=== PATIENT | female | born 1970 | race Caucasian/White ===

== ENCOUNTER → 2017-02-06 | Outpatient (CLI) | payer MEDICARE, OTHER ==
--- NOTE | 2017-02-08 22:21 | MR ---
MRI CERVICAL SPINE: CLINICAL HISTORY: Cervicalgia per order. Headache with neck pain causing pain or weakness in both arm s and fingers and since shoulders per patient. TECHNIQUE: Multiplanar, multisequence imaging of the cervical spine is performed without IV contrast. . COMPARISON: Outside MRI cervical spine report June 30, 2014. FINDINGS: Exam is suboptimal as is degraded by patient motion artifact. Sagittal images of the cervic al spine show the craniocervical junction to appear within normal limits. The cervical and upper tho racic spinal cord is normal in caliber and signal. There is dextroconvex scoliosis centered near the cervical thoracic junction on coronal images. There is reversal of normal cervical curvature on sagit marcelina images. There is grade 1 retrolisthesis of C4 on C5, C5 on C6, and C6 on C7 on sagittal images. V ertebral body and heights are normal. There is moderate disc space narrowing C4-C5 through C6-C7 leve ls. There is overall heterogeneity with endplate changes in the mid to lower cervical spine. Mild ant erior spurring mid to lower cervical levels is present. Axial images show the C2-C3 level to appear within normal limits. Axial images at C3-C4 level show broad-based posterior disc protrusion effacing anterior thecal sac a nd causing mild bilateral neural foraminal narrowing. Axial images at C4-C5 level show more prominent broad-based right paracentral/foraminal disc protrusi on effacing anterior thecal sac and causing moderate right greater than left neural foraminal narrowi ng. Axial images at C5-C6 level show broad-based left paracentral disc protrusion effacing anterior theca l sac and causing moderate to severe left and mild right-sided neural foraminal narrowing. Axial images at C6-C7 level show prominent left paracentral/foraminal disc protrusion effacing annamarie lateral thecal sac and causing advanced left-sided neural foraminal narrowing on axial image 15. Righ t-sided neural foramen is patent. Axial images at C7-T1 level are felt within normal limits. IMPRESSION: Loss of normal cervical curvature with multilevel degenerative changes redemonstrated, mo st pronounced neural foraminal narrowing is redemonstrated at left C5-C6 and C6-C7 levels similar to what is described on prior outside report.
== END | disposition home or self-care (01) ==
LOC: RADMRIMAIN 07:06
PROVIDERS: ATTEND Psychiatry & Neurology Neurology
DX: M99.71 Connective tissue and disc stenosis of intervertebral foramina of cervical region (principal); M47.812 Spondylosis without myelopathy or radiculopathy, cervical region; M43.8X2 Other specified deforming dorsopathies, cervical region
CPT/HCPCS: 72141

== ENCOUNTER 2017-04-28 22:06 | Emergency (ER) | payer MEDICARE, OTHER ==
[2017-04-28 22:11] VITALS: RESP 18; TEMP 97.9
[2017-04-28] MEDS ORDERED: SODIUM CHLORIDE 0.9% 1,000 ML IV STA (22:19)
[2017-04-28] MEDS ORDERED: HYDROmorphone 1 MG/ML 1 ML SYRINGE IVP STA (22:19)
[2017-04-28] MEDS ORDERED: METOCLOPRAMIDE 5 MG/ML 2 ML VIAL IVP STA (22:19)
[2017-04-28] MEDS ORDERED: RX INFO: IV CONTRAST WAS GIVEN 1 EACH MISC MISCELLANE PRN (22:20)
--- NOTE | 2017-04-28 22:26 | ED ---
Abdominal Pain HPI - General Chief Complaint: Abdominal Pain Stated Complaint: fever N & V Time Seen by Provider: 04/28/17 22:16 Source: patient, RN notes reviewed Mode of arrival: ambulatory Limitations: no limitations - History of Present Illness Initial Comments: 46 yo female presents to the ER with cc of right sided abdominal pain. Patient states that this pain started on Monday associated with fever. Patient states that then 2 days later she developed nausea and vomiting. Patient states she is now having ripping pain to the right lower quadrant. Patient states she was concerned due to her symptoms so she thought she should be seen. no radiation, constant pain, moderate in nature. surgical history of hysterectomy and tubal ligation. Patient denies any recent shortness of breath, chest pain, back pain, numbness or tingling, dysuria or hematuria, constipation or diarrhea, headaches or visual changes, or any other current symptoms. - Related Data Home Medications Medication Instructions Recorded Confirmed Albuterol Inhaler [Ventolin 2 puff INHALATION Q6HR PRN 07/22/14 04/28/17 Inhaler] Cyclobenzaprine [Flexeril] 10 mg PO HS 07/22/14 04/28/17 Nitroglycerin Sl Tabs [Nitrostat] 1 mg SUBLINGUAL DIRECTED PRN 07/22/1404/28 Omeprazole [PriLOSEC] 20 mg PO AC-BRKFST 07/22/14 04/28/17 traMADol HCl [Ultram] 50 mg PO TID PRN 07/22/14 04/28/17 ARIPiprazole 10 mg PO DAILY 04/28/17 04/28/17 Citalopram Hydrobromide 20 mg PO DAILY 04/28/17 04/28/17 [Citalopram HBr] Ergocalciferol [Vitamin D2] 50,000 unit PO Q7D 04/28/17 04/28/17 Gabapentin [Neurontin] 600 mg PO TID 04/28/17 04/28/17 Glycopyrrolate/Formoterol Fum 1 puff INHALATION RT-BID 04/28/17 04/28/17 [Bevespi Aerosphere Inhaler] Ibuprofen [Motrin] 600 mg PO TID PRN 04/28/17 04/28/17 Montelukast Sodium [Singulair] 10 mg PO DAILY 04/28/17 04/28/17 Phentermine HCl [Adipex-P] 37.5 mg PO DAILY 04/28/17 04/28/17 Pravastatin Sodium [Pravachol] 20 mg PO HS 04/28/17 04/28/17 Topiramate [Topamax] 50 mg PO BID 04/28/17 04/28/17 cloNIDine HCL [Catapres] 0.3 mg PO BID 04/28/17 04/28/17 Previous Rx's Medication Instructions Recorded Hydrocodone/Acetaminophen [Bristol 1 each PO Q6HR PRN #20 tab 04/29/17 5-325] Ondansetron Odt [Zofran ODT] 4 mg PO Q8HR PRN #20 tab 04/29/17 Allergies Allergy/AdvReac Type Severity Reaction Status Date / Time Tetracyclines AdvReac Nausea & Verified 04/28/17 22:35 Vomiting Review of Systems ROS Statement: Those systems with pertinent positive or pertinent negative responses have been documented in the HPI. ROS Other: All systems not noted in ROS Statement are negative. Past Medical History Past Medical History: Chest Pain / Angina, COPD, Fibromyalgia, GERD/Reflux, Hypertension, Neurologic Disorder Additional Past Medical History / Comment(s): Lupus,cervical disc degeneration History of Any Multi-Drug Resistant Organisms: None Reported Past Surgical History: Bladder Surgery, Hernia Repair, Hysterectomy Additional Past Surgical History / Comment(s): colonoscopy,EGD Past Anesthesia/Blood Transfusion Reactions: No Reported Reaction Past Psychological History: Bipolar, Depression Smoking Status: Current every day smoker Past Alcohol Use History: Occasional Past Drug Use History: None Reported - Past Family History Mother Family Medical History: Deep Vein Thrombosis (DVT) General Exam - General Exam Comments Initial Comments: General: The patient is awake and alert, in no distress, and does not appear acutely ill. Eye: Pupils are equal, round and reactive to light, extra-ocular movements are intact; there is normal conjunctiva bilaterally. No signs of icterus. Ears, nose, mouth and throat: There are moist mucous membranes and no oral lesions. Neck: The neck is supple, there is no tenderness. Cardiovascular: There is a regular rate and rhythm. No murmur, rub or gallop is appreciated. Respiratory: Lungs are clear to auscultation, respirations are non-labored, breath sounds are equal. No wheezes, stridor, rales, or rhonchi. Gastrointestinal: Soft, non-distended, right lower quadrant tenderness of the abdomen without masses or organomegaly noted. There is no rebound or guarding present. No CVA tenderness. Bowel sounds are unremarkable. Back: There is no tenderness to palpation in the midline. There is no obvious deformity. No rashes noted. Musculoskeletal: Normal ROM, no tenderness, There is no pedal edema. There is no calf tenderness or swelling. Sensation intact. Pulses equal bilaterally 2+. Neurological: CN II-XII intact, There are no obvious motor or sensory deficits. Coordination appears grossly intact. Speech is normal. Skin: Skin is warm and dry and no rashes or lesions are noted. Psychiatric: Cooperative, appropriate mood & affect, normal judgment. Limitations: no limitations Course Vital Signs 04/28/17 04/29/17 04/29/17 22:09 01:02 02:37 Temperature 97.9 F 97.9 F 97.9 F Pulse Rate 104 H 100 97 Respiratory 18 18 18 Rate Blood Pressure 175/113 158/92 151/100 O2 Sat by Pulse 99 99 99 Oximetry Medical Decision Making - Medical Decision Making 46 yo female presents to the ER with cc of right lower quadrant abdominal pain. At this time patient's lab work is initial mild case of acute pancreatitis mildly elevated liver enzymes as well. At this time we did discuss patient obtained hospital or go home. She states that she is feeling better. At this time we will discharge patient home. We discussed only clear liquids and talus her abdominal pain has completely resolved. We discussed follow-up with her doctor for resolution of the labs we discussed return parameters all patient's questions. She stated that she understood and she is ovarian plan. All questions have been answered. Since she will be discharged. - Lab Data Result diagrams: 04/28/17 22:40 04/28/17 22:40 Lab Results 04/28/17 04/28/17 04/28/17 Range/Units 22:40 22:40 22:40 WBC 7.4 (3.8-10.6) k/uL RBC 6.06 H (3.80-5.40) m/uL Hgb 18.6 H (11.4-16.0) gm/dL Hct 54.7 H (34.0-46.0) % MCV 90.3 (80.0-100.0) fL MCH 30.7 (25.0-35.0) pg MCHC 34.0 (31.0-37.0) g/dL RDW 13.4 (11.5-15.5) % Plt Count 208 (150-450) k/uL Neutrophils % 48 % Lymphocytes % 44 % Monocytes % 4 % Eosinophils % 1 % Basophils % 2 % Neutrophils # 3.5 (1.3-7.7) k/uL Lymphocytes # 3.3 (1.0-4.8) k/uL Monocytes # 0.3 (0-1.0) k/uL Eosinophils # 0.1 (0-0.7) k/uL Basophils # 0.1 (0-0.2) k/uL PT (9.0-12.0) sec INR (<1.1) APTT (22.0-30.0) sec Sodium 141 (137-145) mmol/L Potassium 3.1 L (3.5-5.1) mmol/L Chloride 98 (98-107) mmol/L Carbon Dioxide 24 (22-30) mmol/L Anion Gap 19 mmol/L BUN 9 (7-17) mg/dL Creatinine 0.80 (0.52-1.04) mg/dL Est GFR (MDRD) Af Amer >60 (>60 ml/min/1.73 sqM) Est GFR (MDRD) Non-Af >60 (>60 ml/min/1.73 sqM) Glucose 92 (74-99) mg/dL Plasma Lactic Acid Kang (0.7-2.0) mmol/L Calcium 10.6 H (8.4-10.2) mg/dL Total Bilirubin 0.9 (0.2-1.3) mg/dL AST 84 H (14-36) U/L ALT 71 H (9-52) U/L Alkaline Phosphatase 106 (38-126) U/L Total Protein 8.8 H (6.3-8.2) g/dL Albumin 5.2 H (3.5-5.0) g/dL Amylase 133 H (30-110) U/L Lipase 384 H (23-300) U/L Urine Color Urine Appearance (Clear) Urine pH (5.0-8.0) Ur Specific Peck (1.001-1.035) Urine Protein (Negative) Urine Glucose (UA) (Negative) Urine Ketones (Negative) Urine Blood (Negative) Urine Nitrite (Negative) Urine Bilirubin (Negative) Urine Urobilinogen (<2.0) mg/dL Ur Leukocyte Esterase (Negative) Blood Type O Positive Blood Type Recheck No Antibody Screen NEGATIVE Spec Expiration Date 05/01/2017 - 233904/28/17 04/28/17 04/29/17 Range/Units 22:40 22:40 00:20 WBC (3.8-10.6) k/uL RBC (3.80-5.40) m/uL Hgb (11.4-16.0) gm/dL Hct (34.0-46.0) % MCV (80.0-100.0) fL MCH (25.0-35.0) pg MCHC (31.0-37.0) g/dL RDW (11.5-15.5) % Plt Count (150-450) k/uL Neutrophils % % Lymphocytes % % Monocytes % % Eosinophils % % Basophils % % Neutrophils # (1.3-7.7) k/uL Lymphocytes # (1.0-4.8) k/uL Monocytes # (0-1.0) k/uL Eosinophils # (0-0.7) k/uL Basophils # (0-0.2) k/uL PT 10.2 (9.0-12.0) sec INR 1.0 (<1.1) APTT 23.7 (22.0-30.0) sec Sodium (137-145) mmol/L Potassium (3.5-5.1) mmol/L Chloride (98-107) mmol/L Carbon Dioxide (22-30) mmol/L Anion Gap mmol/L BUN (7-17) mg/dL Creatinine (0.52-1.04) mg/dL Est GFR (MDRD) Af Amer (>60 ml/min/1.73 sqM) Est GFR (MDRD) Non-Af (>60 ml/min/1.73 sqM) Glucose (74-99) mg/dL Plasma Lactic Acid Kang 1.5 (0.7-2.0) mmol/L Calcium (8.4-10.2) mg/dL Total Bilirubin (0.2-1.3) mg/dL AST (14-36) U/L ALT (9-52) U/L Alkaline Phosphatase (38-126) U/L Total Protein (6.3-8.2) g/dL Albumin (3.5-5.0) g/dL Amylase (30-110) U/L Lipase (23-300) U/L Urine Color Yellow Urine Appearance Clear (Clear) Urine pH 5.5 (5.0-8.0) Ur Specific Peck 1.040 H (1.001-1.035) Urine Protein Negative (Negative) Urine Glucose (UA) Negative (Negative) Urine Ketones 1+ H (Negative) Urine Blood Negative (Negative) Urine Nitrite Negative (Negative) Urine Bilirubin Negative (Negative) Urine Urobilinogen <2.0 (<2.0) mg/dL Ur Leukocyte Esterase Negative (Negative) Blood Type Blood Type Recheck Antibody Screen Spec Expiration Date - Radiology Data Radiology results: report reviewed, image reviewed Disposition Clinical Impression: Dehydration, Acute pancreatitis, Elevated liver enzymes Disposition: HOME SELF-CARE Condition: Stable Instructions: Pancreatitis (ED) Additional Instructions: Please use medication as discussed. Please follow up with family doctor if symptoms have not improved over the next two days. Please return to the emergency room if your symptoms increase or worsen or for any other concerns. Prescriptions: Hydrocodone/Acetaminophen [Bristol 5-325] 1 each PO Q6HR PRN #20 tab PRN Reason: Pain Ondansetron Odt [Zofran ODT] 4 mg PO Q8HR PRN #20 tab PRN Reason: Nausea Referrals: Zain Hernandez MD [Primary Care Provider] - 1-2 days Time of Disposition: 17:30
[2017-04-28 22:59] LABS: Basophils # (A) 0.1 k/uL (0-0.2); Basophils % (A) 2 %; CH 31.2; CHCM 34.7; Eosinophils # (A) 0.1 k/uL (0-0.7); Eosinophils % (A) 1 %; HCT 54.7 % (34.0-46.0); HDW 2.71; HGB 18.6 gm/dL (11.4-16.0); Luc # (Auto) 0.12; Luc % (Auto) 2; Lymphocytes # (A) 3.3 k/uL (1.0-4.8); Lymphocytes % (A) 44 %; MCH 30.7 pg (25.0-35.0); MCV 90.3 fL (80.0-100.0); Mean Platelet Volume 7.3; Monocytes # (A) 0.3 k/uL (0-1.0); Monocytes % (A) 4 %; Neutrophils # (A) 3.5 k/uL (1.3-7.7); Neutrophils % (A) 48 %; RBC 6.06 m/uL (3.80-5.40); RDW 13.4 % (11.5-15.5); WBC 7.4 k/uL (3.8-10.6); WBC (Perox) 7.02
[2017-04-28 23:16] LABS: ALT 71 U/L (9-52); AST 84 U/L (14-36); Alkaline Phosphatase 106 U/L (38-126); Amylase 133 U/L (30-110); Anion Gap 19 mmol/L; Blood Urea Nitrogen 9 mg/dL (7-17); Calcium 10.6 mg/dL (8.4-10.2); Carbon Dioxide 24 mmol/L (22-30); Chloride 98 mmol/L (98-107); Glucose 92 mg/dL (74-99); Non-African American GFR(MDRD) >60 (>60 ml/min/1.73 sqM); Potassium 3.1 mmol/L (3.5-5.1); Sodium 141 mmol/L (137-145); Total Bilirubin 0.9 mg/dL (0.2-1.3); Total Protein 8.8 g/dL (6.3-8.2)
[2017-04-28 23:19] LABS: Partial Thromboplastin Time 23.7 sec (22.0-30.0); Prothrombin Time 10.2 sec (9.0-12.0)
--- NOTE | 2017-04-28 23:21 | CT ---
EXAM: CT Abdomen and Pelvis With Intravenous Contrast CLINICAL HISTORY: Nausea, vomiting, diarrhea, right lower quadrant abdominal pain TECHNIQUE: Axial computed tomography images of the abdomen and pelvis with intravenous contrast. CTDI is 10.60, 11.30 mGy and DLP is 847.2 mGy-cm. This CT exam was performed using one or more of the following dose reduction techniques: automated exposure control, adjustment of the mA and/or kV according to patient size, and/or use of iterative reconstruction technique. COMPARISON: No relevant prior studies available. FINDINGS: Lower thorax: No acute findings. ABDOMEN: Liver: Unremarkable. Gallbladder and bile ducts: Unremarkable. No calcified stones. Pancreas: Unremarkable. Spleen: Unremarkable. Adrenals: Unremarkable. Kidneys and ureters: Unremarkable. No solid mass. No hydronephrosis. Stomach and bowel: Unremarkable. Bowel is nondilated. Appendix: No findings to suggest acute appendicitis. PELVIS: Bladder: Unremarkable. Reproductive: Unremarkable as visualized. ABDOMEN and PELVIS: Intraperitoneal space: Unremarkable. No free air. Bones/joints: No acute osseous abnormality. Soft tissues: Small fat-containing periumbilical and inguinal hernias. Vasculature: Mild atherosclerosis of the abdominal aorta without evidence of aneurysm. Lymph nodes: Unremarkable. No enlarged lymph nodes. IMPRESSION: No acute findings.
[2017-04-28] MEDS ORDERED: POTASSIUM CHLORIDE ORAL LIQUID 40 MEQ/30 ML CUP PO ONE (23:35)
[2017-04-29] MEDS: POTASSIUM CHLORIDE 10 MEQ, LIDOCAINE 2% INJ 10 MG in SODIUM CHLORIDE 0.9% 100 ML IVPB SCH ×2 (00:06→01:25)
--- NOTE | 2017-04-29 00:20 | US ---
EXAM: US Abdomen Limited, Right Upper Quadrant CLINICAL HISTORY: Reason: Pain TECHNIQUE: Real-time ultrasound of the right upper quadrant with image documentation. COMPARISON: CT 04/28/2017 FINDINGS: Limitations: Bowel gas Liver: The liver is normal in size and smooth in contour measuring 13. 8 cm in length focal hepatic lesions. The portal vein is patent with normal direction of flow. Gallbladder: Sonographic Goncalves sign is negative. No gallstones. Common bile duct: Unremarkable as visualized. No stones. No dilation. Pancreas: Not well-seen. Right kidney: The right kidney is normal in size, contour, and echogenicity and measures 11.3 cm in length. No hydronephrosis, nephrolithiasis, or focal renal lesions. IMPRESSION: Unremarkable gallbladder ultrasound.
[2017-04-29] MEDS ORDERED: SODIUM CHLORIDE 0.9% 1,000 ML IV STA (00:47)
[2017-04-29] MEDS ORDERED: HYDROmorphone 1 MG/ML 1 ML SYRINGE IVP STA (00:47)
[2017-04-29 01:20] LABS: Appearance,Urine Clear (Clear); Bilirubin,Urine Negative (Negative); Glucose,Urine (UA) Negative (Negative); Ketones,Urine 1+ (Negative); Leukocyte Esterase,Urine Negative (Negative); Nitrite,Urine Negative (Negative); PH, Urine 5.5 (5.0-8.0); Protein,Urine Negative (Negative); UA Billing (MACRO vs. MICRO) CHEM; Urobilinogen,Urine <2.0 mg/dL (<2.0)
[2017-04-29 02:38] VITALS: BP 151/100; PULSE 97
== END 2017-04-29 02:37 | disposition home or self-care (01) ==
LOC: EC 22:06
DX: E86.0 Dehydration (principal); K85.90 Acute pancreatitis without necrosis or infection, unspecified; R74.8 Abnormal levels of other serum enzymes; K21.9 Gastro-esophageal reflux disease without esophagitis; M79.7 Fibromyalgia; I10 Essential (primary) hypertension; J44.9 Chronic obstructive pulmonary disease, unspecified; F31.9 Bipolar disorder, unspecified; F17.200 Nicotine dependence, unspecified, uncomplicated; Z79.51 Long term (current) use of inhaled steroids; Z79.899 Other long term (current) drug therapy; Z88.1 Allergy status to other antibiotic agents; Z90.710 Acquired absence of both cervix and uterus; Z98.890 Other specified postprocedural states
CPT/HCPCS: 36415; 86900; 86901; 80053; 82150; 83605; 83690; 85025; 85610; 85730; 86850; 81003; 87040; 87086; 76705; 74177; 99284; 96365; 96366 ×2; 96375 ×2; 96376; 96361; J2001; J2765; J3480; J1170 ×2; Q9967

== ENCOUNTER → 2019-05-28 | Outpatient (CLI) | payer MEDICARE ==
--- NOTE | 2019-05-29 11:14 | MM ---
Reason for exam: screening (asymptomatic). Last mammogram was performed 3 years and 2 months ago. History: Patient is postmenopausal. Family history of breast cancer in paternal aunt at age 30. Took hormonal contraceptives for 5 years. Physical Findings: A clinical breast exam by your physician is recommended on an annual basis and results should be correlated with mammographic findings. MG 3D Screening Mammo W/Cad Bilateral CC and MLO view(s) were taken. Prior study comparison: April 08, 2016, bilateral MG 3d screening mammo w/cad. January 13, 2015, bilateral MG diagnostic mammo w CAD [facility]. There are scattered fibroglandular densities. Stable benign calcifications. There is no discrete abnormality. No significant changes when compared with prior studies. ASSESSMENT: Benign, BI-RAD 2 RECOMMENDATION: Routine screening mammogram of both breasts in 1 year.
== END | disposition home or self-care (01) ==
LOC: RADMAMWWP 07:52
PROVIDERS: ATTEND Family Medicine
DX: Z12.31 Encounter for screening mammogram for malignant neoplasm of breast (principal)
CPT/HCPCS: 77063; 77067

== ENCOUNTER → 2019-06-24 | Outpatient (CLI) | payer MEDICARE ==
[2019-06-24 10:25] LABS: Basophils # (A) 0.1 k/uL (0-0.2); Basophils % (A) 1 %; Eosinophils # (A) 0.2 k/uL (0-0.7); Eosinophils % (A) 2 %; HCT 50.5 % (34.0-46.0); HGB 16.2 gm/dL (11.4-16.0); Lymphocytes # (A) 2.4 k/uL (1.0-4.8); Lymphocytes % (A) 29 %; MCH 31.1 pg (25.0-35.0); MCHC 32.1 g/dL (31.0-37.0); MCV 96.7 fL (80.0-100.0); Mean Platelet Volume 6.8; Monocytes # (A) 0.4 k/uL (0-1.0); Monocytes % (A) 5 %; Neutrophils # (A) 5.3 k/uL (1.3-7.7); Neutrophils % (A) 63 %; Platelet Count 222 k/uL (150-450); RBC 5.22 m/uL (3.80-5.40); RDW 12.7 % (11.5-15.5); WBC 8.4 k/uL (3.8-10.6)
[2019-06-24 16:12] LABS: ALT 37 U/L (8-44); AST 41 U/L (13-35); African American GFR (CKD) 100.3 (60.0-200.0); Albumin/Globulin Ratio 2.05 (1.60-3.17); Alkaline Phosphatase 96 U/L (41-126); Bilirubin, Conjugated <0.20 mg/dL (0.20-0.40); Calcium 9.1 mg/dL (8.7-10.3); Carbon Dioxide 30.9 mmol/L (21.6-31.8); Chloride 103 mmol/L (96-109); Chol/HDL Ratio 3.28; Cholesterol 174 mg/dL (0-200); Globulin 2.1 g/dL (1.6-3.3); Glucose 115 mg/dL (70-110); Non-African American GFR(CKD) 86.6 (60.0-200.0); Potassium 5.4 mmol/L (3.5-5.5); Sodium 139 mmol/L (135-145); Total Bilirubin 0.3 mg/dL (0.2-1.2); Total Protein 6.4 g/dL (6.2-8.2)
[2019-06-24 16:20] LABS: Prolactin 19.7 ng/mL (2.8-29.2)
[2019-06-24 17:16] LABS: Hemoglobin A1C 5.9 % (4.0-6.0)
== END ==
LOC: LABWHC1 09:25
PROVIDERS: ATTEND Clinical Nurse Specialist Psychiatric/Mental Health
DX: F41.1 Generalized anxiety disorder (principal)
CPT/HCPCS: 36415; 80053; 80061; 82248; 83036; 84146; 84439; 84443; 84479; 85025

== ENCOUNTER → 2021-05-25 | Outpatient (CLI) | payer MEDICARE | END | disposition home or self-care (01) | LOC: LABWHC1 08:55 | PROVIDERS: ATTEND Physician Assistant | DX: I49.9 Cardiac arrhythmia, unspecified (principal) | CPT/HCPCS: 36415; 93005 ==

== ENCOUNTER → 2021-10-26 | Outpatient (CLI) | payer MEDICARE ==
[~2021-10-26] MED LIST: BAMLANIVIMAB (EUA) 700 MG, ETESEVIMAB (EUA) 1,400 MG in SODIUM CHLORIDE 0.9% 50 ML IVPB ONE; SODIUM CHLORIDE 0.9% 50 ML IVPB ONE; SODIUM CHLORIDE 0.9% 500 ML 500 ML in EMPTY BAG 1 BAG IV PRN
[2021-10-26 09:01] VITALS: RESP 16
[2021-10-26 09:34] VITALS: BP 118/80; PULSE 86; TEMP 97.4
== END | disposition home or self-care (01) ==
LOC: PROCWHC3 08:28
PROVIDERS: ATTEND Family Medicine
DX: U07.1 COVID-19 (principal)
CPT/HCPCS: 96360; J3490; M0245

== ENCOUNTER 2021-11-02 01:15 | Observation (INO) | payer MEDICARE ==
--- NOTE | 2021-11-02 02:03 | ED ---
Chest Pain HPI - General Chief Complaint: Chest Pain Stated Complaint: Chest Pain Time Seen by Provider: 11/02/21 01:40 Source: patient Mode of arrival: ambulatory Limitations: no limitations - History of Present Illness Initial Comments: This patient is a 50-year-old woman with history of COPD and recent Covid infection, who presents with complaint of right-sided chest pain. The patient states that it is at the inframammary line. He states that it feels sharp and is worse with taking a deep breath. She has not noted other worsening or relieving factors. She has not noted fever or chills, dyspnea, nausea, vomiting, palpitations or syncope. No leg pain or swelling. MD Complaint: chest pain Onset/Timin -: days(s) Onset: during rest Pain Location: right chest Pain Radiation: none Severity: moderate Quality: sharp Consistency: constant Improves With: nothing Worsens With: inspiration Context: recent illness Other Symptoms: cough Treatments Prior to Arrival: none - Related Data Home Medications Medication Instructions Recorded Confirmed Albuterol Inhaler (Mhu) [Ventolin 2 puff INHALATION Q6HR PRN 07/22/14 04/28/17 Inhaler] Cyclobenzaprine [Flexeril] 10 mg PO HS 07/22/14 04/28/17 Nitroglycerin Sl Tabs [Nitrostat] 1 mg SUBLINGUAL DIRECTED PRN 07/22/14 04/28/17 Omeprazole [PriLOSEC] 20 mg PO AC-BRKFST 07/22/14 04/28/17 traMADol HCl [Ultram] 50 mg PO TID PRN 07/22/14 04/28/17 ARIPiprazole 10 mg PO DAILY 04/28/17 04/28/17 Citalopram Hydrobromide 20 mg PO DAILY 04/28/17 04/28/17 [Citalopram HBr] Ergocalciferol [Vitamin D2] 50,000 unit PO Q7D 04/28/17 04/28/17 Gabapentin [Neurontin] 600 mg PO TID 04/28/17 04/28/17 Glycopyrrolate/Formoterol Fum 1 puff INHALATION RT-BID 04/28/17 04/28/17 [Bevespi Aerosphere Inhaler] Ibuprofen [Motrin] 600 mg PO TID PRN 04/28/17 04/28/17 Montelukast Sodium [Singulair] 10 mg PO DAILY 04/28/17 04/28/17 Phentermine HCl [Adipex-P] 37.5 mg PO DAILY 04/28/17 04/28/17 Pravastatin Sodium [Pravachol] 20 mg PO HS 04/28/17 04/28/17 Topiramate [Topamax] 50 mg PO BID 04/28/17 04/28/17 cloNIDine HCL [Catapres] 0.3 mg PO BID 04/28/17 04/28/17 Previous Rx's Medication Instructions Recorded Hydrocodone/Acetaminophen [Benicia 1 each PO Q6HR PRN #20 tab 04/29/17 5-325] Ondansetron Odt [Zofran ODT] 4 mg PO Q8HR PRN #20 tab 04/29/17 Allergies Allergy/AdvReac Type Severity Reaction Status Date / Time Tetracyclines AdvReac Nausea & Verified 11/02/21 01:20 Vomiting Review of Systems ROS Statement: Those systems with pertinent positive or pertinent negative responses have been documented in the HPI. ROS Other: All systems not noted in ROS Statement are negative. Constitutional: Denies: fever, chills Respiratory: Reports: as per HPI, cough. Denies: dyspnea, wheezes, hemoptysis Cardiovascular: Reports: as per HPI, chest pain. Denies: palpitations, orthopnea, edema, syncope Gastrointestinal: Denies: abdominal pain, nausea, vomiting, diarrhea Genitourinary: Denies: dysuria, hematuria Musculoskeletal: Denies: back pain Skin: Denies: rash Neurological: Denies: headache EKG Findings - EKG Results: EKG: interpreted by ERMD, sinus rhythm (Rate 83 bpm) - Blocks, [place], Hypertrophy, ST Abn: AV and intraventricular conduction: right bundle branch block (fixed/intermittent, complete/incomplete) (Incomplete) Repolarization changes or abnormalities: nonspecific abnormality, ST segment, and/or T wave, Q-T interval prolongation Past Medical History Past Medical History: Chest Pain / Angina, COPD, Fibromyalgia, GERD/Reflux, Hypertension, Neurologic Disorder Additional Past Medical History / Comment(s): Lupus,cervical disc degeneration History of Any Multi-Drug Resistant Organisms: None Reported Past Surgical History: Bladder Surgery, Hernia Repair, Hysterectomy Additional Past Surgical History / Comment(s): colonoscopy,EGD Past Anesthesia/Blood Transfusion Reactions: No Reported Reaction Past Psychological History: Bipolar, Depression Smoking Status: Current every day smoker Past Alcohol Use History: Occasional Past Drug Use History: Marijuana - Past Family History Mother Family Medical History: Deep Vein Thrombosis (DVT) General Exam Limitations: no limitations General appearance: alert, in no apparent distress Head exam: Present: atraumatic, normocephalic Eye exam: Present: normal appearance. Absent: scleral icterus, conjunctival injection ENT exam: Present: normal oropharynx Neck exam: Present: normal inspection Respiratory exam: Present: normal lung sounds bilaterally. Absent: respiratory distress, wheezes, rales, rhonchi, stridor, chest wall tenderness Cardiovascular Exam: Present: regular rate, normal rhythm, normal heart sounds. Absent: systolic murmur, diastolic murmur, rubs, gallop GI/Abdominal exam: Present: soft. Absent: distended, tenderness, guarding, rebound, rigid, mass Extremities exam: Present: normal inspection, normal capillary refill. Absent: pedal edema, calf tenderness Back exam: Present: normal inspection. Absent: CVA tenderness (R), CVA tenderness (L) Neurological exam: Present: alert Skin exam: Present: warm, dry, intact, normal color. Absent: rash Course Vital Signs 11/02/21 11/02/21 11/02/21 01:21 02:19 03:02 Temperature 98.2 F Pulse Rate 83 82 86 Respiratory 20 18 18 Rate Blood Pressure 128/89 106/92 118/84 O2 Sat by Pulse 99 97 97 Oximetry 11/02/21 06:00 Temperature 98.7 F Pulse Rate 78 Respiratory 18 Rate Blood Pressure 114/90 O2 Sat by Pulse 96 Oximetry Chest [facility] Patient is 50-year-old woman who presents with chest pain that is atypical with some new ST segment changes to the ECG. I do suspect that these are related to the patient's moderate hypokalemia. Patient has had potassium supplement, will admit to observation for serial cardiac enzymes and to ensure that these changes resolve. Disposition Clinical Impression: Atypical chest pain, Hypokalemia Disposition: ADMITTED IP TO THIS [facility] Condition: Good Is patient prescribed a controlled substance at d/c from ED?: No Referrals: Zain Hernandez MD [Primary Care Provider] - 1-2 days
[2021-11-02 02:34] LABS: Basophils # (A) 0.1 k/uL (0-0.2); Basophils % (A) 1 %; Eosinophils # (A) 0.1 k/uL (0-0.7); Eosinophils % (A) 1 %; HCT 52.7 % (34.0-46.0); HGB 17.8 gm/dL (11.4-16.0); Lymphocytes # (A) 1.8 k/uL (1.0-4.8); Lymphocytes % (A) 20 %; MCH 31.9 pg (25.0-35.0); MCHC 33.7 g/dL (31.0-37.0); MCV 94.7 fL (80.0-100.0); Mean Platelet Volume 7.6; Monocytes # (A) 0.3 k/uL (0-1.0); Monocytes % (A) 3 %; Neutrophils # (A) 6.7 k/uL (1.3-7.7); Neutrophils % (A) 72 %; Platelet Count 271 k/uL (150-450); RBC 5.56 m/uL (3.80-5.40); RDW 12.9 % (11.5-15.5); WBC 9.3 k/uL (3.8-10.6)
[2021-11-02] MEDS ORDERED: KETOROLAC 15 MG/ML 1 ML VIAL IVP STA (02:40)
[2021-11-02 02:45] LABS: INR 0.9 (<1.2); Partial Thromboplastin Time 22.1 sec (22.0-30.0); Prothrombin Time 9.8 sec (9.0-12.0)
[2021-11-02 02:54] LABS: ALT 14 U/L (4-34); AST 42 U/L (14-36); African American GFR (CKD) >90 (>60 ml/min/1.73 sqM); Albumin 4.1 g/dL (3.5-5.0); Alkaline Phosphatase 89 U/L (38-126); Amylase 88 U/L (30-110); Anion Gap 17 mmol/L; Blood Urea Nitrogen 9 mg/dL (7-17); Calcium 9.7 mg/dL (8.4-10.2); Carbon Dioxide 24 mmol/L (22-30); Chloride 94 mmol/L (98-107); Glucose 102 mg/dL (74-99); Lipase 167 U/L (23-300); Magnesium 1.7 mg/dL (1.6-2.3); Non-African American GFR(CKD) >90 (>60 ml/min/1.73 sqM); Potassium 2.9 mmol/L (3.5-5.1); Sodium 135 mmol/L (137-145); Total Bilirubin 0.5 mg/dL (0.2-1.3); Total Protein 7.9 g/dL (6.3-8.2)
[2021-11-02] MEDS ORDERED: POTASSIUM CHLORIDE ER 20 MEQ TAB.ER PO STA ×2 (03:05→04:50)
--- NOTE | 2021-11-02 03:09 | XR ---
EXAMINATION TYPE: XR chest 2V DATE OF EXAM: 11/02/2021 COMPARISON: 03/10/2017 HISTORY: Short of breath. Chest pain. There is no heart failure nor confluent pneumonic infiltrate. Costophrenic angles are clear. There i s mild pulmonary hyperinflation. Heart and mediastinum are normal. There is small linear density left lung base. IMPRESSION: There is probably some COPD. Normal heart. Minimal subsegmental atelectasis left lung bas e is new compared to old exam.
--- NOTE | 2021-11-02 03:32 | CT ---
EXAMINATION TYPE: CT chest angio for PE DATE OF EXAM: 11/02/2021 COMPARISON: None HISTORY: elevated d-dimer CT DLP: 258.8 mGycm Automated exposure control for dose reduction was used. CONTRAST: Performed with IV Contrast, patient injected with 60 mL of Isovue 370. Images obtained from the thoracic inlet to the diaphragm with IV contrast. There are 3-D post process ed images. The lungs are clear of consolidation. There is no evidence of a pulmonary mass. There is no pleural e ffusion. There are no hilar masses. There is no mediastinal adenopathy. Thoracic aorta is intact. There is no aneurysm or dissection. There is normal contrast opacification of the pulmonary arteries. There are no filling defects. Thora cic spine is intact. There is no compression fracture. Sternum is intact. There is no evidence of a r ib fracture. There is some mild flattening the diaphragm. IMPRESSION: No evidence of pulmonary embolism. There is evidence for some COPD. No acute lung disease.
[2021-11-02] MEDS ORDERED: NITROGLYCERIN SL TABS 0.4 MG TAB SUBLINGUAL PRN (06:32)
[2021-11-02] MEDS ORDERED: HEPARIN SODIUM,PORCINE/PF 5,000 UNIT/0.5 ML SYRINGE SQ SCH (08:00)
[2021-11-02 08:43] VITALS: RESP 16
[2021-11-02] MEDS ORDERED: CYCLOBENZAPRINE 10 MG TAB PO PRN (10:22)
[2021-11-02] MEDS ORDERED: IBUPROFEN 600 MG TAB PO PRN (10:22)
[2021-11-02] MEDS ORDERED: ALBUTEROL NEBULIZED 2.5 MG/3 ML INHALATION PRN (10:22)
[2021-11-02] MEDS ORDERED: traMADol 50 MG TAB PO PRN (10:22)
[2021-11-02] MEDS ORDERED: TOPIRAMATE 25 MG TAB PO PRN (10:22)
[2021-11-02] MEDS ORDERED: TOPIRAMATE 25 MG TAB PO SCH (10:30)
[2021-11-02] MEDS ORDERED: PRAVASTATIN SODIUM 40 MG TAB PO SCH (10:30)
[2021-11-02] MEDS ORDERED: risperiDONE 2 MG TAB PO SCH ×2 (10:30→21:00)
[2021-11-02] MEDS ORDERED: CITALOPRAM HYDROBROMIDE 20 MG TAB PO SCH ×2 (10:30→21:00)
[2021-11-02] MEDS ORDERED: MONTELUKAST 10 MG TAB PO SCH (10:30)
[2021-11-02] MEDS ORDERED: PANTOPRAZOLE 40 MG TABLET PO SCH (10:30)
[2021-11-02] MEDS ORDERED: cloNIDine HCL 0.1 MG TAB PO SCH (10:30)
[2021-11-02] MEDS ORDERED: GABAPENTIN 300 MG CAP PO SCH (10:30)
[2021-11-02] MEDS ORDERED: COLCHICINE 0.6 MG EACH PO SCH (10:30)
[2021-11-02 10:33] LABS: HCT 47.3 % (34.0-46.0); HGB 16.4 gm/dL (11.4-16.0); MCH 32.3 pg (25.0-35.0); MCHC 34.7 g/dL (31.0-37.0); MCV 92.8 fL (80.0-100.0); Mean Platelet Volume 7.7; Platelet Count 270 k/uL (150-450); RDW 12.4 % (11.5-15.5); WBC 5.9 k/uL (3.8-10.6)
[2021-11-02 10:58] LABS: African American GFR (CKD) >90 (>60 ml/min/1.73 sqM); Anion Gap 10 mmol/L; Blood Urea Nitrogen 7 mg/dL (7-17); Calcium 9.5 mg/dL (8.4-10.2); Carbon Dioxide 29 mmol/L (22-30); Chloride 95 mmol/L (98-107); Glucose 80 mg/dL (74-99); Non-African American GFR(CKD) >90 (>60 ml/min/1.73 sqM); Potassium 3.1 mmol/L (3.5-5.1); Sodium 134 mmol/L (137-145)
--- NOTE | 2021-11-02 12:58 | P.CRDCN ---
History of Present Illness Consult date: 11/02/21 Chief complaint: Chest pain History of present illness: The patient is a pleasant 50-year-old female patient with a past medical history significant for chronic obstructive pulmonary disease and also recent history of Chlamydia infection presented to the emergency department complaining of chest discomfort. The patient described the discomfort as one small spot beneath her right breast. The discomfort does not radiate to her arms or neck or shoulders or back and not associated with any symptoms of shortness of breath or sweating or dizziness or lightheadedness or any presyncope or syncope. She is asking to go home. She was ruled out for acute coronary event. The EKG showed sinus rhythm without any significant ST or T-wave abnormalities but nonspecific changes. The cardiac enzymes were checked and came in to be unremarkable. Be side that the patient underwent a computed tomography scan of the chest and that showed no evidence of pulmonary embolism. Currently she is chest pain-free. She has no prior history of coronary artery disease or congestive heart failure or cardiac arrhythmia but she does have history of smoking Past Medical History Past Medical History: Chest Pain / Angina, COPD, Fibromyalgia, GERD/Reflux, Hypertension, Neurologic Disorder Additional Past Medical History / Comment(s): Lupus,cervical disc degeneration History of Any Multi-Drug Resistant Organisms: None Reported Past Surgical History: Bladder Surgery, Hernia Repair, Hysterectomy Additional Past Surgical History / Comment(s): colonoscopy,EGD Past Anesthesia/Blood Transfusion Reactions: No Reported Reaction Past Psychological History: Bipolar, Depression Smoking Status: Current every day smoker Past Alcohol Use History: Occasional Past Drug Use History: Marijuana - Past Family History Mother Family Medical History: Deep Vein Thrombosis (DVT) Medications and Allergies Home Medications Medication Instructions Recorded Confirmed Type Cyclobenzaprine [Flexeril] 10 mg PO BID PRN 07/22/14 11/02/21 History Nitroglycerin Sl Tabs [Nitrostat] 0.4 mg SUBLINGUAL Q5M PRN 07/22/14 11/02/21 History Omeprazole [PriLOSEC] 20 mg PO DAILY 07/22/14 11/02/21 History traMADol HCl [Ultram] 50 mg PO QID PRN 07/22/14 11/02/21 History Gabapentin [Neurontin] 600 mg PO TID 04/28/17 11/02/21 History Ibuprofen [Motrin] 600 mg PO TID PRN 04/28/17 11/02/21 History Montelukast Sodium [Singulair] 10 mg PO DAILY 04/28/17 11/02/21 History cloNIDine HCL [Catapres] 0.3 mg PO TID 04/28/17 11/02/21 History Albuterol Sulfate [Albuterol 2 puff PO RT-Q4H PRN 11/02/21 11/02/21 History Sulfate Hfa] Aspirin EC [Ecotrin] 325 mg PO DAILY 11/02/21 11/02/21 History Budesonide-Formot 160-4.5 Mcg 2 puff INHALATION RT-BID 11/02/21 11/02/21 History [Symbicort 160-4.5 Mcg Inhaler] Cholecalciferol (Vitamin D3) 125 mcg PO BID 11/02/21 11/02/21 History [Vitamin D3 (125 MCG = 5,000 IU)] Citalopram Hydrobromide [CeleXA] 60 mg PO DAILY 11/02/21 11/02/21 History Colchicine 0.6 mg PO DAILY 11/02/21 11/02/21 History Ibuprofen [Motrin] 600 mg PO Q8HR PRN 11/02/21 11/02/21 History Melatonin 10 mg PO HS 11/02/21 11/02/21 History Nystatin 100,000Unit/gm Cream 1 applic TOPICAL BID 11/02/21 11/02/21 History [Mycostatin Cream] Pravastatin Sodium [Pravachol] 40 mg PO DAILY 11/02/21 11/02/21 History Topiramate 50 mg PO BID PRN 11/02/21 11/02/21 History Topiramate [Topamax] 50 mg PO DAILY 11/02/21 11/02/21 History Triamcinolone 0.1% Cream [Kenalog 1 applic TOPICAL BID 11/02/21 11/02/21 History 0.1% Cream] Turmeric Curcumin 1 tab PO BID 11/02/21 11/02/21 History Zinc Gluconate [Zinc] 50 mg PO BID 11/02/21 11/02/21 History risperiDONE [RisperDAL] 2 mg PO DAILY 11/02/21 11/02/21 History Allergies Allergy/AdvReac Type Severity Reaction Status Date / Time Tetracyclines AdvReac Nausea & Verified 11/02/21 07:09 Vomiting Physical Exam Vitals: Vital Signs Temp Pulse Resp BP Pulse Ox 11/02/21 08:38 81 16 140/99 95 11/02/21 07:00 98.0 F 82 18 112/86 96 11/02/21 06:00 98.7 F 78 18 114/90 96 11/02/21 04:30 82 18 116/79 95 11/02/21 03:02 86 18 118/84 97 11/02/21 02:19 82 18 106/92 97 11/02/21 01:21 98.2 F 83 20 128/89 99 Intake and Output 11/01/21 11/02/21 11/02/21 22:59 06:59 14:59 Other: Weight 63.503 kg - Constitutional General appearance: no acute distress - Respiratory Respiratory: bilateral: CTA - Cardiovascular Rhythm: regular Heart sounds: normal: S1, S2 Abnormal Heart Sounds: systolic murmur Results 11/02/21 10:10 11/02/21 10:10 Cardiac Enzymes 11/02/21 11/02/21 11/02/21 Range/Units 02:14 02:14 08:58 AST 42 H (14-36) U/L Troponin I <0.012 <0.012 (0.000-0.034) ng/mL 11/02/21 Range/Units 10:10 AST (14-36) U/L Troponin I <0.012 (0.000-0.034) ng/mL Coagulation 11/02/21 Range/Units 02:14 PT 9.8 (9.0-12.0) sec APTT 22.1 (22.0-30.0) sec CBC 11/02/21 11/02/21 Range/Units 02:14 10:10 WBC 9.3 5.9 (3.8-10.6) k/uL RBC 5.56 H 5.10 (3.80-5.40) m/uL Hgb 17.8 H 16.4 H (11.4-16.0) gm/dL Hct 52.7 H 47.3 H (34.0-46.0) % Plt Count 271 270 (150-450) k/uL Comprehensive Metabolic Panel 11/02/21 11/02/21 Range/Units 02:14 10:10 Sodium 135 L 134 L (137-145) mmol/L Potassium 2.9 L 3.1 L (3.5-5.1) mmol/L Chloride 94 L 95 L (98-107) mmol/L Carbon Dioxide 24 29 (22-30) mmol/L BUN 9 7 (7-17) mg/dL Creatinine 0.55 0.67 (0.52-1.04) mg/dL Glucose 102 H 80 (74-99) mg/dL Calcium 9.7 9.5 (8.4-10.2) mg/dL AST 42 H (14-36) U/L ALT 14 (4-34) U/L Alkaline Phosphatase 89 (38-126) U/L Total Protein 7.9 (6.3-8.2) g/dL Albumin 4.1 (3.5-5.0) g/dL Current Medications Generic Name Dose Route Start Last Admin Trade Name Freq PRN Reason Stop Dose Admin Albuterol Sulfate 2.5 mg 11/02/21 10:22 Albuterol Nebulized 2.5 Mg/3 Ml INHALATION RT-Q4H PRN Shortness Of Breath Aspirin 325 mg 11/03/21 09:00 Aspirin 325 Mg Tab PO DAILY BARRETT Budesonide/Formoterol Fumarate 2 puff 11/02/21 20:00 Symbicort 160-4.5 Mcg Inhaler INHALATION RT-BID BARRETT Cholecalciferol 125 mcg 11/02/21 21:00 Cholecalciferol 125 Mcg (5000 Iu) Tablet PO BID BARRETT Citalopram Hydrobromide 60 mg 11/02/21 21:00 Citalopram Hydrobromide 20 Mg Tab PO HS BARRETT Clonidine 0.3 mg 11/02/21 10:30 11/02/21 10:53 Clonidine Hcl 0.1 Mg Tab PO 0.3 mg TID BARRETT Administration Colchicine 0.6 mg 11/02/21 10:30 11/02/21 10:54 Colchicine 0.6 Mg Each PO 0.6 mg DAILY BARRETT Administration Cyclobenzaprine HCl 10 mg 11/02/21 10:22 11/02/21 10:33 Cyclobenzaprine 10 Mg Tab PO 10 mg BID PRN Administration Muscle Spasm Gabapentin 600 mg 11/02/21 10:30 11/02/21 11:24 Gabapentin 300 Mg Cap PO 600 mg TID BARRETT Administration Heparin Sodium (Porcine) 5,000 unit 11/02/21 08:00 11/02/21 08:35 Heparin Sodium,Porcine/Pf 5,000 Unit/0.5 Ml Syringe SQ 5,000 unit Q8HR BARRETT Administration Ibuprofen 600 mg 11/02/21 10:22 Ibuprofen 600 Mg Tab PO Q8HR PRN PAIN OR INFLAMMATION Melatonin 10 mg 11/02/21 21:00 Melatonin 5 Mg Tablet PO HS BARRETT Montelukast Sodium 10 mg 11/02/21 10:30 Montelukast 10 Mg Tab PO DAILY BARRETT Nitroglycerin 0.4 mg 11/02/21 06:32 Nitroglycerin Sl Tabs 0.4 Mg Tab SUBLINGUAL Q5M PRN Chest Pain Pantoprazole Sodium 40 mg 11/02/21 10:30 Pantoprazole 40 Mg Tablet PO DAILY BARRETT Pravastatin Sodium 40 mg 11/02/21 10:30 Pravastatin Sodium 40 Mg Tab PO DAILY BARRETT Risperidone 2 mg 11/02/21 21:00 Risperidone 2 Mg Tab PO HS BARRETT Topiramate 50 mg 11/02/21 10:30 11/02/21 10:59 Topiramate 25 Mg Tab PO 50 mg DAILY BARRETT Administration Topiramate 50 mg 11/02/21 10:22 Topiramate 25 Mg Tab PO BID PRN Migraine Headache Tramadol HCl 50 mg 11/02/21 10:22 Tramadol 50 Mg Tab PO QID PRN Muscle Spasm Zinc Sulfate 220 mg 11/02/21 21:00 Zinc Sulfate 220 Mg Cap PO HS BARRETT Intake and Output 11/01/21 11/02/21 11/02/21 22:59 06:59 14:59 Other: Weight 63.503 kg 11/02/21 10:10 11/02/21 10:10 Assessment and Plan Assessment: Assessment #1 atypical chest discomfort #2 chronic obstructive pulmonary disease Plan #1 acute coronary event was ruled out #2 the patient would like to go home and have a stress test as an outpatient #3 she remains chest pain-free when she was seen earlier today. From the cardiac standpoint of view, the patient can be discharged home.
--- NOTE | 2021-11-02 13:29 | P.DS ---
Providers Date of admission: 11/02/21 06:32 Expected date of discharge: 11/02/21 Attending physician: Nasra Bangura MD Consults: 11/02/21 06:32 Consult Physician Routine Consulting Provider: Kal Chatterjee Consult Reason/Comments: atypical chest pain Do you want consulting provider notified?: Yes Primary care physician: Zain Hernandez MD Hospital Course: 50-year-old admitted to the hospital with chest pain significantly improved patient has been evaluated by cardiology. To go home the patient wants to go home Constitutional: No acute distress, conversant, pleasant Eyes: Anicteric sclerae, moist conjunctiva, no lid-lag PERRLA ENMT: NC/AT Oropharynx clear, no erythema, exudates Neck: Supple, FROM, no masses, or JVD No carotid bruits No thyromegaly Lungs: Clear to auscultation Clear to percussion Normal respiratory effort, no accessory muscle use Cardiovascular: Heart regular in rate and rhythm, No murmurs, gallops, or rubs No peripheral edema Abdominal: Soft Nontender, no guarding, rebound or rigidity Abdomen moving with respiration Normoactive bowel sounds No hepatomegaly, No splenomegaly No palpable mass No abdominal wall hernia noted Skin: Normal temperature, tone, texture, turgor No induration No subcutaneous nodules No rash, lesions No ulcers Extremities: No digital cyanosis No clubbing Pedal pulses intact and symmetrical Radial pulses intact and symmetrical Normal gait and station No calf tenderness Psychiatric:Alert and oriented to person, place and time Appropriate affect Intact judgement Neuro: Muscles Strength 5/5 in all 4 extremities Sensation to light touch grossly present throughout Cranial nerves II-XII grossly intact No focal sensory deficits Discharge plan Chest pain no evidence of acute coronary syndrome follow-up with cardiology as an outpatient Anxiety Hypertension Patient Condition at Discharge: Good Plan - Discharge Summary New Discharge Prescriptions: Continue Nitroglycerin Sl Tabs [Nitrostat] 0.4 mg SUBLINGUAL Q5M PRN PRN Reason: Angina Cyclobenzaprine [Flexeril] 10 mg PO BID PRN PRN Reason: Muscle Spasm Omeprazole [PriLOSEC] 20 mg PO DAILY traMADol HCl [Ultram] 50 mg PO QID PRN PRN Reason: Muscle Spasm Montelukast Sodium [Singulair] 10 mg PO DAILY Ibuprofen [Motrin] 600 mg PO TID PRN PRN Reason: Pain cloNIDine HCL [Catapres] 0.3 mg PO TID Gabapentin [Neurontin] 600 mg PO TID Topiramate [Topamax] 50 mg PO DAILY Pravastatin Sodium [Pravachol] 40 mg PO DAILY Ibuprofen [Motrin] 600 mg PO Q8HR PRN PRN Reason: PAIN OR INFLAMMATION Cholecalciferol (Vitamin D3) [Vitamin D3 (125 MCG = 5,000 IU)] 125 mcg PO BID Melatonin 10 mg PO HS Zinc Gluconate [Zinc] 50 mg PO BID Colchicine 0.6 mg PO DAILY Aspirin EC [Ecotrin] 325 mg PO DAILY Turmeric Curcumin 1 tab PO BID Triamcinolone 0.1% Cream [Kenalog 0.1% Cream] 1 applic TOPICAL BID Nystatin 100,000Unit/gm Cream [Mycostatin Cream] 1 applic TOPICAL BID risperiDONE [RisperDAL] 2 mg PO DAILY Citalopram Hydrobromide [CeleXA] 60 mg PO DAILY Topiramate 50 mg PO BID PRN PRN Reason: Migraine Headache Budesonide-Formot 160-4.5 Mcg [Symbicort 160-4.5 Mcg Inhaler] 2 puff INHALATION RT-BID Albuterol Sulfate [Albuterol Sulfate Hfa] 2 puff PO RT-Q4H PRN PRN Reason: Shortness Of Breath Discharge Medication List Cyclobenzaprine [Flexeril] 10 mg PO BID PRN 07/22/14 [History] Nitroglycerin Sl Tabs [Nitrostat] 0.4 mg SUBLINGUAL Q5M PRN 07/22/14 [History] Omeprazole [PriLOSEC] 20 mg PO DAILY 07/22/14 [History] traMADol HCl [Ultram] 50 mg PO QID PRN 07/22/14 [History] Gabapentin [Neurontin] 600 mg PO TID 04/28/17 [History] Ibuprofen [Motrin] 600 mg PO TID PRN 04/28/17 [History] Montelukast Sodium [Singulair] 10 mg PO DAILY 04/28/17 [History] cloNIDine HCL [Catapres] 0.3 mg PO TID 04/28/17 [History] Albuterol Sulfate [Albuterol Sulfate Hfa] 2 puff PO RT-Q4H PRN 11/02/21 [History] Aspirin EC [Ecotrin] 325 mg PO DAILY 11/02/21 [History] Budesonide-Formot 160-4.5 Mcg [Symbicort 160-4.5 Mcg Inhaler] 2 puff INHALATION RT-BID 11/02/21 [History] Cholecalciferol (Vitamin D3) [Vitamin D3 (125 MCG = 5,000 IU)] 125 mcg PO BID 11/02/21 [History] Citalopram Hydrobromide [CeleXA] 60 mg PO DAILY 11/02/21 [History] Colchicine 0.6 mg PO DAILY 11/02/21 [History] Ibuprofen [Motrin] 600 mg PO Q8HR PRN 11/02/21 [History] Melatonin 10 mg PO HS 11/02/21 [History] Nystatin 100,000Unit/gm Cream [Mycostatin Cream] 1 applic TOPICAL BID 11/02/21 [History] Pravastatin Sodium [Pravachol] 40 mg PO DAILY 11/02/21 [History] Topiramate 50 mg PO BID PRN 11/02/21 [History] Topiramate [Topamax] 50 mg PO DAILY 11/02/21 [History] Triamcinolone 0.1% Cream [Kenalog 0.1% Cream] 1 applic TOPICAL BID 11/02/21 [History] Turmeric Curcumin 1 tab PO BID 11/02/21 [History] Zinc Gluconate [Zinc] 50 mg PO BID 11/02/21 [History] risperiDONE [RisperDAL] 2 mg PO DAILY 11/02/21 [History] Follow up Appointment(s)/Referral(s): Zain Hernandez MD [Primary Care Provider] - 1-2 days Discharge Disposition: HOME SELF-CARE
[2021-11-02 14:57] VITALS: BP 124/82; PULSE 98; TEMP 98.3
[2021-11-02] MEDS ORDERED: SYMBICORT 160-4.5 MCG INHALER INHALATION SCH (20:00)
[2021-11-02] MEDS ORDERED: ZINC SULFATE 220 MG CAP PO SCH (21:00)
[2021-11-02] MEDS ORDERED: MELATONIN 5 MG TABLET PO SCH (21:00)
[2021-11-02] MEDS ORDERED: CHOLECALCIFEROL 125 MCG (5000 IU) TABLET PO SCH (21:00)
[2021-11-03] MEDS ORDERED: ASPIRIN 325 MG TAB PO SCH (09:00)
== END 2021-11-02 14:03 | disposition home or self-care (01) ==
LOC: EC 01:15 → 6NMEDSUR 06:32
PROVIDERS: ADMIT Internal Medicine; ATTEND Internal Medicine
DX: R07.89 Other chest pain (principal); E87.6 Hypokalemia; F41.9 Anxiety disorder, unspecified; J44.9 Chronic obstructive pulmonary disease, unspecified; I45.10 Unspecified right bundle-branch block; I10 Essential (primary) hypertension; M79.7 Fibromyalgia; K21.9 Gastro-esophageal reflux disease without esophagitis; F31.9 Bipolar disorder, unspecified; M50.30 Other cervical disc degeneration, unspecified cervical region; F17.200 Nicotine dependence, unspecified, uncomplicated; Z86.16 Personal history of COVID-19; Z79.899 Other long term (current) drug therapy; Z88.1 Allergy status to other antibiotic agents; Z90.710 Acquired absence of both cervix and uterus; Z98.890 Other specified postprocedural states; Z86.19 Personal history of other infectious and parasitic diseases; Z79.51 Long term (current) use of inhaled steroids; Z79.82 Long term (current) use of aspirin; Z82.49 Family history of ischemic heart disease and other diseases of the circulatory system
CPT/HCPCS: 96372; 96374; 99285; 36415; 93005; 85379; 80053; 80048; 82150; 83690; 83735; 84484; 85025; 85027; 85610; 85730; 87635; 71046; 71275; G0378; J1885; Q9967; J1644

== ENCOUNTER → 2021-12-09 | Outpatient (CLI) | payer MEDICARE ==
--- NOTE | 2021-12-13 09:01 | MM ---
Reason for exam: screening (asymptomatic). Last mammogram was performed 2 years and 6 months ago. History: Patient is postmenopausal. Family history of breast cancer in paternal aunt at age 30. Took hormonal contraceptives for 5 years. Physical Findings: A clinical breast exam by your physician is recommended on an annual basis and results should be correlated with mammographic findings. MG 3D Screening Mammo W/Cad Bilateral CC and MLO view(s) were taken. Prior study comparison: May 28, 2019, bilateral MG 3d screening mammo w/cad. April 08, 2016, bilateral MG 3d screening mammo w/cad. There are scattered fibroglandular densities. No significant changes when compared with prior studies. ASSESSMENT: Negative, BI-RAD 1 RECOMMENDATION: Routine screening mammogram of both breasts in 1 year.
== END | disposition home or self-care (01) ==
LOC: RADMAMWWP 07:54
PROVIDERS: ATTEND Family Medicine
DX: Z12.31 Encounter for screening mammogram for malignant neoplasm of breast (principal)
CPT/HCPCS: 77063; 77067

== ENCOUNTER → 2022-01-15 | Outpatient (CLI) | payer MEDICARE ==
[2022-01-15 12:04] LABS: HCT 45.2 % (37.2-46.3); HGB 14.4 g/dL (12.0-15.0); MCH 30.8 pg (27.0-32.0); MCHC 31.9 g/dL (32.0-37.0); MCV 96.6 fL (80.0-97.0); Mean Platelet Volume 9.8 fL (9.5-12.2); NRBC Per 100 WBC 0 /100 WBCS (0.0-0.0); Platelet Count 207 X 10*3/uL (140-440); RBC 4.68 X 10*6/uL (4.10-5.20); RDW 13.3 % (11.5-14.5); WBC 7.16 X 10*3/uL (4.50-10.00)
[2022-01-15 12:12] LABS: African American GFR (CKD) 115.5 (60.0-200.0); Anion Gap 11.4 mmol/L (10.00-18.00); Blood Urea Nitrogen 5.1 mg/dL (9.0-27.0); Carbon Dioxide 22.6 mmol/L (20.0-27.5); Non-African American GFR(CKD) 99.6 (60.0-200.0); Potassium 3.9 mmol/L (3.5-5.5)
== END | disposition home or self-care (01) ==
LOC: LABPAT 08:34
PROVIDERS: ATTEND Internal Medicine Interventional Cardiology
DX: Z01.812 Encounter for preprocedural laboratory examination (principal); R94.39 Abnormal result of other cardiovascular function study
CPT/HCPCS: 80051; 82565; 84520; 85027

== ENCOUNTER 2022-01-18 06:27 | Day surgery (SDC) | payer MEDICARE ==
[2022-01-14 16:21] VITALS: BMI 24.6
[2022-01-18] MEDS ORDERED: HEPARIN SODIUM,PORCINE 2,500 UNIT in SODIUM CHLORIDE 0.9% 250 ML IRRIGATION PRN (06:31)
[2022-01-18] MEDS ORDERED: ATORVASTATIN 80 MG TAB PO STA (06:31)
[2022-01-18] MEDS ORDERED: SODIUM CHLORIDE 0.9% 1,000 ML in EMPTY BAG 1 BAG IV SCH (06:31)
[2022-01-18] MEDS ORDERED: ALPRAZolam 0.5 MG TAB PO PRN (06:31)
[2022-01-18] MEDS ORDERED: NITROGLYCERIN SL TABS 0.4 MG TAB SUBLINGUAL PRN (06:31)
[2022-01-18] MEDS ORDERED: ALPRAZolam 0.25 MG TAB PO PRN (06:31)
[2022-01-18] MEDS ORDERED: ASPIRIN 325 MG TAB PO STA (06:31)
[2022-01-18] MEDS ORDERED: HEPARIN SODIUM,PORCINE 10,000 UNIT in SODIUM CHLORIDE 0.9% 1,000 ML IRRIGATION PRN (06:31)
[2022-01-18] MEDS ORDERED: ALPRAZolam 0.25 MG TAB PO ONE (06:58)
[2022-01-18 07:04] VITALS: RESP 16; TEMP 98.1
[2022-01-18] MEDS ORDERED: MIDAZOLAM 2 MG/2 ML VIAL IV ONE (07:41)
[2022-01-18] MEDS ORDERED: LIDOCAINE 1% INJ 10MG/ML (20 ML MDV) SQ ONE ×2 (07:44→07:45)
[2022-01-18] MEDS ORDERED: VERAPAMIL SYRINGE (5 MG/10 ML) INTRAARTER ONE (07:46)
[2022-01-18] MEDS ORDERED: IOPAMIDOL-370 125ML BTL INJ ONE (07:57)
[2022-01-18] MEDS ORDERED: RX INFO: IV CONTRAST WAS GIVEN 1 EACH MISC MISCELLANE PRN (08:05)
--- NOTE | 2022-01-18 08:10 | P.PCN ---
Date of Procedure: 01/18/22 Operative Findings: CARDIAC CATHETERIZATION PERFORMING PHYSICIAN: Kal Chatterjee MD, RPVI PROCEDURE PERFORMED: 1. Selective right and left coronary angiogram 2. Left heart catheterization INDICATION: Chest discomfort and this 49-year-old female patient was underwent myocardial perfusion imaging stress test and that revealed an inferior ischemia COMPLICATION: None APPROACH: Right radial artery LEVEL OF SEDATION: Moderate with a sedation length of 16 minutes PROCEDURE DESCRIPTION: After obtaining an informed consent, the patient was brought to cardiac cath lab technologist. Local anesthesia was performed using lidocaine subcutaneously. The right radial artery was cannulated using Seldinger technique, the guidewire passed easily, following that we advanced a 5-Danish sheath dilator assembly, the wire and dilator were removed and sheath was flushed. Following that, 2 mg of verapamil along with 5000 unit heparin were given. Selective right and left coronary angiogram using a 6-Danish JR4 and JL 3.5 catheters. Following that we did left heart catheterization using 6-Danish pigtail catheter. The procedure was completed there was no complication. SELECTIVE CORONARY ANGIOGRAM: The right coronary artery: Is a large caliber vessel and a dominant vessel. The RCA in the midportion has a lesion appeared to be in the range of 30%. Distally bifurcates into PDA and PLV branches and both appeared to be angiographically normal Left main: Is angiographically normal. Bifurcates into a CXR and LAD The left circumflex: Is a large caliber vessel and codominant vessel. The LCx in the proximal po rtion gives rises into a large OM branch which appeared to be angiographically normal. The mid left circumflex is normal. Distally the circumflex bifurcates into PDA and PLV branches both appeared to be angiographically normal The left anterior descending artery: Is a large caliber vessel. Its angiographically normal. In the midportion gives rise into a large diagonal branch which seems to be angiographically normal HEMODYNAMICS: The LVEDP was about 8 mmHg without significant gradient across aortic valve CONCLUSION: 1. Mild disease involving the mid right coronary artery 2. Codominant right and left coronary system 3. Normal left-sided filling branch POSTPROCEDURE MANAGEMENT: Medical treatment and follow-up with the patient
[2022-01-18] MEDS ORDERED: SODIUM CHLORIDE 0.9% 1,000 ML IV SCH (08:15)
[2022-01-18 18:13] VITALS: BP 130/82; PULSE 58
== END 2022-01-18 13:03 | disposition home or self-care (01) ==
LOC: CATHCVL 06:27
PROVIDERS: ATTEND Internal Medicine Interventional Cardiology
DX: I25.110 Atherosclerotic heart disease of native coronary artery with unstable angina pectoris (principal); I10 Essential (primary) hypertension; E78.00 Pure hypercholesterolemia, unspecified; R94.39 Abnormal result of other cardiovascular function study; Z20.822 Contact with and (suspected) exposure to COVID-19; J44.9 Chronic obstructive pulmonary disease, unspecified; E78.5 Hyperlipidemia, unspecified; I73.9 Peripheral vascular disease, unspecified; F17.200 Nicotine dependence, unspecified, uncomplicated; Z79.01 Long term (current) use of anticoagulants; Z79.82 Long term (current) use of aspirin; Z88.1 Allergy status to other antibiotic agents; Z79.2 Long term (current) use of antibiotics; Z79.1 Long term (current) use of non-steroidal anti-inflammatories (NSAID); Z79.51 Long term (current) use of inhaled steroids; Z79.899 Other long term (current) drug therapy
CPT/HCPCS: 93458; 87635; C1894; C1769; J2250; J2001; J1644; Q9967

== ENCOUNTER 2022-07-08 09:48 | Day surgery (SDC) | payer MEDICARE ==
[2022-07-07 08:32] VITALS: BMI 26.6
[~2022-07-08 09:48] MED LIST changes: -BAMLANIVIMAB (EUA) 700 MG, ETESEVIMAB (EUA) 1,400 MG in SODIUM CHLORIDE 0.9% 50 ML IVPB ONE; +LACTATED RINGERS 1,000 ML IV SCH; +LIDOCAINE 1% (10MG/ML) FOR IV START INTRADERMA PRN; -SODIUM CHLORIDE 0.9% 50 ML IVPB ONE; -SODIUM CHLORIDE 0.9% 500 ML 500 ML in EMPTY BAG 1 BAG IV PRN
[2022-07-08 10:27] VITALS: TEMP 97
[2022-07-08] MEDS ORDERED: PROPOFOL 10 MG/ML 20 ML VIAL IV ONE (12:49)
[2022-07-08] MEDS ORDERED: LIDOCAINE 2% INJ 20 MG/ML (2 ML VIAL) ONE (12:49)
--- NOTE | 2022-07-08 13:14 | P.PCN ---
Date of Procedure: 07/08/22 Procedure(s) Performed: BRIEF HISTORY: Patient is a 51-year-old pleasant white female scheduled for an elective colonoscopy as a part of screening for colorectal neoplasia. PROCEDURE PERFORMED: Colonoscopy with snare polypectomy and argon plasma coagulation. PREOPERATIVE DIAGNOSIS: Screening for colon cancer. IV sedation per Anesthesia. PROCEDURE: After informed consent was obtained, the patient, was brought into the endoscopy unit. IV sedation was administered by Anesthesia under continuous monitoring. Digital rectal examination was normal. Initially the Olympus CF-160 flexible video colonoscope was then inserted in the rectum, gradually advanced into the cecum without any difficulty. Careful examination was performed as the scope was gradually being withdrawn. Ileocecal valve and the appendiceal orifice were visualized and appeared normal. Prep was excellent. Mucosa of the cecum had a 1 cm nonbleeding AVM that was cauterized using argon plasma. In the ascending colon there was a 1 cm polyp removed by snare polypectomy. In the hepatic flexure was a 5 mm 2 polyps removed by snare polypectomy. Rest of the, ascending colon, transverse colon, descending colon, sigmoid colon, and rectum appeared normal. Retroflexion was performed in the rectum and grade 2 internal hemorrhoids were seen. The patient tolerated the procedure well. 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 She was advised to follow with the biopsy results. If the biopsy reveals adenoma she can have colonoscopy in 3 years. .
[2022-07-08 13:22] VITALS: RESP 16
[2022-07-08 13:48] VITALS: BP 141/98; PULSE 87
== END 2022-07-08 13:50 | disposition home or self-care (01) ==
LOC: ORWHC2ENDO 09:48
PROVIDERS: ATTEND Internal Medicine Gastroenterology
DX: Z12.11 Encounter for screening for malignant neoplasm of colon (principal); D12.2 Benign neoplasm of ascending colon; D12.3 Benign neoplasm of transverse colon; K64.1 Second degree hemorrhoids; Q27.33 Arteriovenous malformation of digestive system vessel; I10 Essential (primary) hypertension; I25.10 Atherosclerotic heart disease of native coronary artery without angina pectoris; M32.9 Systemic lupus erythematosus, unspecified; G43.909 Migraine, unspecified, not intractable, without status migrainosus; Z88.1 Allergy status to other antibiotic agents; Z79.899 Other long term (current) drug therapy; Z79.82 Long term (current) use of aspirin; Z79.51 Long term (current) use of inhaled steroids; F17.210 Nicotine dependence, cigarettes, uncomplicated; Z82.49 Family history of ischemic heart disease and other diseases of the circulatory system
CPT/HCPCS: 88305; 45385; 45388; J2704; J2001

== ENCOUNTER → 2023-02-01 | Outpatient (CLI) | payer MEDICARE ==
--- NOTE | 2023-02-02 09:12 | MM ---
Reason for Exam: Screening (asymptomatic). Last mammogram was performed 1 year(s) and 2 month(s) ago. Patient History: Menarche at age 10. First Full-Term at age 19. Right ovary removed at age 35. Hysterectomy at age 35. Postmenopausal. Patient used Hormonal Contraceptives for 5 years. Paternal aunt had breast cancer, age 30. Risk Values: Dilia 5 year model risk: 1.1%. NCI Lifetime model risk: 8.4%. Prior Study Comparison: 04/08/2016 Bilateral Screening Mammogram, [facility]. 05/28/2019 Bilateral Screening Mammogram, [facility]. 12/09/2021 Bilateral Screening Mammogram, [facility]. Tissue Density: There are scattered fibroglandular densities. Findings: Analyzed By CAD. There is no suspicious group of microcalcifications or new suspicious mass in either breast. Stable focal asymmetries within the right breast. Overall Assessment: Benign, BI-RAD 2 Management: Screening Mammogram of both breasts in 1 year. A clinical breast exam by your physician is recommended on an annual basis and results should be correlated with mammographic findings. Electronically signed and approved by: Vineet Arguelles D.O.
== END | disposition home or self-care (01) ==
LOC: RADMAMWWP 07:09
PROVIDERS: ATTEND Family Medicine
DX: Z12.31 Encounter for screening mammogram for malignant neoplasm of breast (principal); Z78.0 Asymptomatic menopausal state; Z80.3 Family history of malignant neoplasm of breast
CPT/HCPCS: 77063; 77067

== ENCOUNTER → 2024-04-30 | Outpatient (CLI) | payer MEDICARE ==
--- NOTE | 2024-04-30 17:31 | MM ---
Reason for Exam: Screening (asymptomatic). Last mammogram was performed 1 year(s) and 3 month(s) ago. Patient History: Menarche at age 10. First Full-Term at age 19. Right ovary removed at age 35. Hysterectomy at age 35. Postmenopausal. Patient used Hormonal Contraceptives for 5 years. Paternal aunt had breast cancer, age 30. Risk Values: Dilia 5 year model risk: 1.1%. NCI Lifetime model risk: 8.2%. Prior Study Comparison: 05/28/2019 Bilateral Screening Mammogram, [facility]. 12/09/2021 Bilateral Screening Mammogram, [facility]. 02/01/2023 Bilateral MG 3D screening mammo w/cad, [facility]. Tissue Density: There are scattered areas of fibroglandular density. Findings: Analyzed By CAD. The pattern is symmetrical. Pattern appears stable focal asymmetries in the upper outer right breast, stable. No suspicious groups of microcalcifications, spiculated or lobular masses, architectural distortion or other secondary signs of malignancy are mammographically apparent. Overall Assessment: Benign, BI-RAD 2 Management: Screening Mammogram of both breasts in 1 year. A negative mammogram report should not preclude additional follow up of suspicious palpable abnormalities. Patient should continue monthly self breast exam. A clinical breast exam by your physician is recommended on an annual basis and results should be correlated with mammographic findings. Note on Dilia scores and lifetime risk: 1. A Dilia score greater than 3% is considered moderate risk. If this is the case, consider specialist referral to assess eligibility for a risk reducing agent. 2. If overall lifetime risk for the development of breast cancer is 20% or higher, the patient may qualify for future screening with alternating mammogram and breast MRI. Electronically signed and approved by: Sourav Paul D.O. Radiologis
== END | disposition home or self-care (01) ==
LOC: RADMAMWWP 07:22
PROVIDERS: ATTEND Family Medicine
DX: Z12.31 Encounter for screening mammogram for malignant neoplasm of breast (principal); Z78.0 Asymptomatic menopausal state; Z80.3 Family history of malignant neoplasm of breast
CPT/HCPCS: 77063; 77067

== ENCOUNTER → 2024-09-23 | Outpatient (CLI) | payer MEDICARE ==
--- NOTE | 2024-09-27 20:16 | CTL ---
EXAMINATION TYPE: CT Low Dose Lung DATE OF EXAM: 09/23/2024 8:17 AM COMPARISON: 11/02/2021 CLINICAL INDICATION: Female, 53 years old with history of F17.210 nicotine dependence, Personal hx ni cotine dependence, 1 ppd x 30 years, current smoker, hx COPD, chronic bronchitis, asthma., Lung cance r screening, History of tobacco use. TECHNIQUE: Low dose computed tomography scan was performed through the chest at 1 mm thick sections a nd reconstructed images in the coronal plane at 1 mm thick sections. Contrast used: mL of , (none if empty) Oral contrast used: (none if empty) CT DLP: 87.10 mGycm, Automated exposure control for dose reduction was used. CT CTDI: 2.3 mGy, Automated exposure control for dose reduction was used. SCREENING VISIT: Initial CT DIAGNOSTIC QUALITY: Satisfactory FINDINGS: LUNG NODULES: None. LUNGS: COPD: Severity: Moderate Fibrosis: Severity: None Lymph nodes: None Other findings: None RIGHT PLEURAL SPACE: Effusion: None Calcification: None Thickening: None Pneumothorax: None LEFT PLEURAL SPACE: Effusion: None Calcification: None Thickening: None Pneumothorax: None HEART: Other: Ascending thoracic aorta at the level the main pulmonary artery measures 2.7 cm. The main pul monary artery at the bifurcation measures3.1 cm. Heart Size: Normal Coronary calcification: Mild Pericardial effusion: None OTHER FINDINGS: Upper abdomen: Normal Bony thorax: Normal Supraclavicular region: Normal IMPRESSION: No changes to suggest primary or metastatic neoplasm. FOLLOW UP CT CHEST RECOMMENDATION: Follow-up low-dose CT chest one year CT LUNG RAD: Lung-Rad 1 Negative [facility], , 09/27/2024 8:14 PM
== END | disposition home or self-care (01) ==
LOC: RADCTMAIN 06:53
PROVIDERS: ATTEND Family Medicine
DX: Z12.2 Encounter for screening for malignant neoplasm of respiratory organs (principal); F17.210 Nicotine dependence, cigarettes, uncomplicated; J44.9 Chronic obstructive pulmonary disease, unspecified
CPT/HCPCS: 71271

== ENCOUNTER → 2025-06-05 | Outpatient (CLI) | payer MEDICARE ==
--- NOTE | 2025-06-05 19:23 | US ---
EXAMINATION TYPE: US thyroid st tissue head/neck DATE OF EXAM: 06/05/2025 COMPARISON: NONE CLINICAL INDICATION: Female, 54 years old with history of E04.1 NONTOXIC SINGLE THYROID NODULE; Dr alejandra mack lump/enlargement TECHNIQUE: Grayscale and color Doppler imaging of the thyroid gland. FINDINGS: GLAND SIZE: Right Lobe: 4.5 x 1.4 x 1.8 cm Overall Parenchyma: homogeneous Left Lobe: 4.9 x 1.6 x 1.4 cm Overall Parenchyma: homogeneous Isthmus Thickness: 0.2 cm There is some hyperemia noted within the gland. NODULES RIGHT: # of nodules measured on right: 0 LEFT: # of nodules measured on left: 0 ISTHMUS: # of nodules measured in the isthmus: 0 Bilateral neck scanned, no evidence of lymphadenopathy. IMPRESSION: Relatively normal-sized thyroid gland and no discrete nodules. There may be slight hyperemia within t he gland. Correlate to exclude the possibility of diffuse thyroiditis. [facility], , 06/05/2025 7:21 PM
== END | disposition home or self-care (01) ==
LOC: RADUSWWP 15:53
PROVIDERS: ATTEND Family Medicine
DX: E04.1 Nontoxic single thyroid nodule (principal)
CPT/HCPCS: 76536